=== PATIENT | female | born 1960 | race Caucasian/White ===

== ENCOUNTER 2018-07-29 14:53 | Emergency (ER) | payer SELFPAY ==
[~2018-07-29] VITALS: Ht 182.9 cm; Wt 72.6 kg
[2018-07-29] MEDS ORDERED: meTOprolol 5 MG/5 ML (LOPRESSOR) VIAL IV ONE (16:00)
[2018-07-29 16:42] LABS: BASOPHILS % (AUTO) 0 % (0-10); EOSINOPHILS # (AUTO) 0.1 10^3/uL (0.0-0.3); EOSINOPHILS % (AUTO) 1 % (0-10); HEMATOCRIT 44 % (35-52); HEMOGLOBIN 15.2 G/DL (11.5-16.0); LYMPHOCYTES # (AUTO) 1.8 X 10^3 (1.0-4.0); LYMPHOCYTES % (AUTO) 14 % (12-44); MEAN CORPUSCULAR HEMOGLOBIN 31 PG (25-34); MEAN CORPUSCULAR HGB CONC 34 G/DL (32-36); MEAN CORPUSCULAR VOLUME 89 FL (80-99); MEAN PLATELET VOLUME 11.5 FL (7.4-10.4); MONOCYTES # (AUTO) 0.6 X 10^3 (0.0-1.0); MONOCYTES % (AUTO) 4 % (0-12); NEUTROPHILS # (AUTO) 10.6 X 10^3 (1.8-7.8); NEUTROPHILS % (AUTO) 81 % (42-75); PLATELET COUNT 214 10^3/uL (130-400); RED CELL DISTRIBUTION WIDTH 12.7 % (10.0-14.5); WHITE BLOOD COUNT 13.1 10^3/uL (4.3-11.0)
[2018-07-29 16:56] LABS: ALANINE AMINOTRANSFERASE 19 U/L (0-55); ALBUMIN 4.1 GM/DL (3.2-4.5); ALKALINE PHOSPHATASE 73 U/L (40-136); BILIRUBIN,TOTAL 0.7 MG/DL (0.1-1.0); BUN/CREATININE RATIO 11; CALCIUM 9.2 MG/DL (8.5-10.1); CARBON DIOXIDE 23 MMOL/L (21-32); CHLORIDE 102 MMOL/L (98-107); CREATININE SERUM 1.44 MG/DL (0.60-1.30); GFR ESTIMATED 37; GLUCOSE 102 MG/DL (70-105); SODIUM 137 MMOL/L (135-145); TOTAL PROTEIN 7.4 GM/DL (6.4-8.2)
--- NOTE | 2018-07-29 17:31 | Diagnostic Imaging Report ---
PROCEDURE: CT head wo r/o stroke. TECHNIQUE: Multiple contiguous axial images were obtained through the brain without the use of intravenous contrast. INDICATION: High blood pressure and shakiness. Stroke protocol. COMPARISON: None available. FINDINGS: BRAIN: No parenchymal hemorrhage, midline shift or mass effect. Guy-white matter differentiation is intact. No acute infarct. Moderate periventricular and subcortical low-density white matter changes. Mild prominence of the ventricles and Sulci consistent with cortical and cerebellar parenchymal volume loss. Focal hypodensities in bilateral basal ganglia and the left thalamus are compatible with old lacunar infarcts. EXTRA-AXIAL SPACES: No subdural or epidural collections. ORBITS AND PARANASAL SINUSES: Visualized orbits and globes are intact. There is marked mucosal thickening in the right sphenoid sinus. The visualized paranasal sinuses and mastoid air cells are otherwise clear. CALVARIUM AND SOFT TISSUES: The calvarium is intact. No fractures or suspicious bony lesions. The extracranial soft tissues are unremarkable. IMPRESSION: No acute intracranial pathology. No evidence of acute territorial infarct. MRI is much more sensitive for evaluation of acute infarct. Chronic changes consisting of age-related volume loss, nonspecific white matter disease most commonly attributed to small vessel ischemic change, and prior lacunar infarcts. Marked mucosal thickening with near-complete opacification of the right sphenoid sinus. Recommend clinical correlation to evaluate for acute sinusitis. Dictated by: Dictated on workstation # [id number]
--- NOTE | 2018-07-29 17:45 | Diagnostic Imaging Report ---
EXAMINATION: Chest radiograph, portable AP view. DATE: July, at 1714 hours. INDICATION: 58-year-old female, shakiness and hypertension. COMPARISON: None. FINDINGS: Heart size and mediastinal contours are unremarkable. There is no identified pneumothorax. There is no large pleural effusion. There is no identified focal airspace consolidation. IMPRESSION: No identified acute cardiopulmonary abnormality. Dictated by: Dictated on workstation # [id number]
--- NOTE | 2018-07-29 17:49 | ED Cardiac General ---
History of Present Illness General Chief Complaint: Cardiac/General Problems Stated Complaint: BP HIGH Nursing Triage Note: Pt ambulatory to triage. Pt reports being seen at urgent care in [facility] and was sent to ED. Pt c/o high blood pressure, dizziness, and L sided tremor and weakness in hand, arm, and leg that has persisted for 1-2 weeks. Pt denies any pain. Pt brought medication bottles of lisinopril, amlodipine, metoprolol, but states pt has not taken any medications for approximately 6 months. Source: patient Exam Limitations: no limitations History of Present Illness Date Seen by Provider: Jul 29, 2018 Time Seen by Provider: 15:55 Initial Comments 58-year-old male who presents to the emergency room with complaints of hypertension. He reports that he is on blood pressure medication but has not had the medication for 6 months because he has not been able to afford it. He reports that he is prescribed lisinopril, amlodipine, and metoprolol but has not been taking them because he knows he will not be able to afford his next dose. He does have about half of prescription left of each one. He also reports that he's had left-sided tremor and weakness in the left hand arm and leg that has had for 2 weeks. Associated Systoms: Weakness Allergies and Home Medications Allergies Coded Allergies: No Known Drug Allergies (Unverified , 07/29/18) Past Akbkfym-Zfdfvc-Rkciol Hx Patient Social History Alcohol Use: Past History Recreational Drug Use: No Smoking Status: Current Everyday Smoker Type Used: Cigarettes Recent Foreign Travel: No Contact w/Someone Who Travel: No Recent Infectious Disease Expo: No Recent Hopitalizations: No Immunizations Up To Date Tetanus Booster (TDap): Unknown PED Vaccines UTD: Yes Seasonal Allergies Seasonal Allergies: No Past Medical History Surgeries: No Respiratory: No Cardiac: Yes Hypertension Neurological: No Genitourinary: No Gastrointestinal: No Musculoskeletal: No Endocrine: No HEENT: No Cancer: No Psychosocial: No Integumentary: No Blood Disorders: No Physical Exam Vital Signs Vital Signs - First Documented 07/29/18 14:55 Temp 96.8 Pulse 84 Resp 16 B/P (MAP) 235/135 (168) Pulse Ox 96 O2 Delivery Room Air Capillary Refill : Less Than 3 Seconds Height, Weight, BMI Height: 6'0" Weight: 160lbs. oz. [id number]; BMI Method:Stated Progress/Results/Core Measures Results/Orders Lab Results Laboratory Tests Test 07/29/18 15:19 Range/Units White Blood Count 13.1 H 4.3-11.0 10^3/uL Red Blood Count 4.96 4.35-5.85 10^6/uL Hemoglobin 15.2 11.5-16.0 G/DL Hematocrit 44 35-52 % Mean Corpuscular Volume 89 80-99 FL Mean Corpuscular Hemoglobin 31 25-34 PG Mean Corpuscular Hemoglobin Concent 34 32-36 G/DL Red Cell Distribution Width 12.7 10.0-14.5 % Platelet Count 214 130-400 10^3/uL Mean Platelet Volume 11.5 H 7.4-10.4 FL Neutrophils (%) (Auto) 81 H 42-75 % Lymphocytes (%) (Auto) 14 12-44 % Monocytes (%) (Auto) 4 0-12 % Eosinophils (%) (Auto) 1 0-10 % Basophils (%) (Auto) 0 0-10 % Neutrophils # (Auto) 10.6 H 1.8-7.8 X 10^3 Lymphocytes # (Auto) 1.8 1.0-4.0 X 10^3 Monocytes # (Auto) 0.6 0.0-1.0 X 10^3 Eosinophils # (Auto) 0.1 0.0-0.3 10^3/uL Basophils # (Auto) 0.0 0.0-0.1 10^3/uL Sodium Level 137 135-145 MMOL/L Potassium Level 4.0 3.6-5.0 MMOL/L Chloride Level 102 98-107 MMOL/L Carbon Dioxide Level 23 21-32 MMOL/L Anion Gap 12 5-14 MMOL/L Blood Urea Nitrogen 16 7-18 MG/DL Creatinine 1.44 H 0.60-1.30 MG/DL Estimat Glomerular Filtration Rate 37 BUN/Creatinine Ratio 11 Glucose Level 102 70-105 MG/DL Calcium Level 9.2 8.5-10.1 MG/DL Corrected Calcium 9.1 8.5-10.1 MG/DL Total Bilirubin 0.7 0.1-1.0 MG/DL Aspartate Amino Transf (AST/SGOT) 19 5-34 U/L Alanine Aminotransferase (ALT/SGPT) 19 0-55 U/L Alkaline Phosphatase 73 40-136 U/L Troponin I < 0.028 <0.028 NG/ML Total Protein 7.4 6.4-8.2 GM/DL Albumin 4.1 3.2-4.5 GM/DL My Orders Orders - ALEKSANDER MOODY Troponin I (07/29/18 15:55) Chest 1 View, Ap/Pa Only (07/29/18 15:55) Ekg Tracing (07/29/18 15:55) Saline Lock/Iv-Start (07/29/18 15:55) Monitor-Rhythm Ecg Trace Only (07/29/18 15:55) Comprehensive Metabolic Panel (07/29/18 15:55) Cbc With Automated Diff (07/29/18 15:55) Ct Head Wo-R/O Stroke (07/29/18 15:55) Metoprolol Tartrate Injection (Lopressor (07/29/18 16:00) Hydralazine Injection (Apresoline Inject (07/29/18 18:15) Medications Given in ED Current Medications Medications Dose Ordered Sig/Daquan Route Start Time Stop Time Status Last Admin Dose Admin Hydralazine HCl 10 mg ONCE ONCE IV 07/29/18 18:15 07/29/18 18:16 DC 07/29/18 18:15 10 MG Metoprolol Tartrate 5 mg ONCE ONCE IV 07/29/18 16:00 07/29/18 16:01 DC 07/29/18 16:37 5 MG Vital Signs/I&O 07/29/18 14:55 Temp 96.8 Pulse 84 Resp 16 B/P (MAP) 235/135 (168) Pulse Ox 96 O2 Delivery Room Air Blood Pressure Mean: 168 Departure Impression Primary Impression: Hypertension Qualified Codes: I10 - Essential (primary) hypertension Disposition: HOME, SELF-CARE Condition: Stable/Unchanged Departure-Patient Inst. Decision time for Depature: 18:43 Referrals: ANTHONY FRANCIS DO Patient Instructions: High Blood Pressure (DC) Add. Discharge Instructions: Take medications as directed. Keep an eye on your blood pressures at home. Going for prolonged periods of time with high blood pressure can be very damaging to organs like the brain and kidneys. Follow-up with [facility] by calling for an appointment time Wednesday morning for recheck. Return back to the emergency room for any worsening symptoms or concerns as needed. All discharge instructions reviewed with patient and/or family. Voiced understanding. Scripts Lisinopril (Lisinopril) 10 Mg Tablet 10 MG PO DAILY, #30 TAB Prov: ALEKSANDER MOODY 07/29/18 Metoprolol Tartrate (Metoprolol Tartrate) 25 Mg Tablet 25 MG PO BID for 30 Days, #60 TAB Prov: ALEKSANDER MOODY 07/29/18 Amlodipine Besylate (Amlodipine Besylate) 10 Mg Tablet 10 MG PO DAILY, #30 TAB Prov: ALEKSANDER MOODY 07/29/18 ALEKSANDER MOODY Jul 29, 2018 17:49
[2018-07-29] MEDS ORDERED: hydrALAZINE (APESOLINE) 20 MG/ML VIAL IV ONE (18:15)
[2018-07-29] MEDS ORDERED: METO-333 PO (18:56)
[2018-07-29] MEDS ORDERED: AMLO10TA7 PO (18:56)
[2018-07-29] MEDS ORDERED: LISI10TA2 PO (18:56)
[2018-07-29 19:39] VITALS: BP 212/111
--- NOTE | 2018-07-29 19:39 | NUR ---
PROVIDER MADE AWARE OF D/C BP PRIOR TO PT DEPARTURE FROM ED.
== END 2018-07-29 19:41 | disposition home or self-care (01) ==
LOC: ER 14:55
DX: I10 Essential (primary) hypertension (principal); F17.210 Nicotine dependence, cigarettes, uncomplicated
CPT/HCPCS: 36415; 70450; 71045; 80053; 84484; 85025; 93005; 93041